=== PATIENT | male | born 1955 | race Caucasian/White ===

== ENCOUNTER 2016-11-06 22:44 | Emergency (ER) | payer MEDICARE, BC ==
[2016-11-06 22:53] VITALS: BP 155/85
[2016-11-06] MEDS ORDERED: Amoxicillin/Clavulanate K 875-125 MG Tab PO ONE ×2 (23:00→23:09)
[2016-11-06] MEDS ORDERED: cefTRIAXone 1 GM, Lidocaine 1% 2.1 ML IM ONE ×2 (23:00)
[2016-11-06] MEDS ORDERED: diphenhydrAMINE 50 MG Cap PO ONE (23:03)
[2016-11-06] MEDS ORDERED: Amoxicillin/Clavulanate K 875-125 MG Tab ONE (23:09)
--- NOTE | 2016-11-06 23:09 | EDM.PDOC ---
ED HPI GENERAL MEDICAL PROBLEM - General Chief Complaint: Eye Problems Stated Complaint: LEFT EYE SWELLING Time Seen by Provider: 11/06/16 22:56 Source of Information: Reports: Patient History Limitations: Reports: No Limitations - History of Present Illness INITIAL COMMENTS - FREE TEXT/NARRATIVE: This 61 yo male patient reports to the ED with swelling of his left eye. The patient reports he is in [place] for a fishing trip. The patient reports he was fishing all day, got back to where he was staying, made supper, ate and noticed some swelling of his eye. The patient applied a cool compress to the area, but it continued to swell. The patient reports he is able to see out of the eye. The patient does not recall anything hitting him in the eye or any insect bite to the area. The patient reports a similar episode in the past, but he does not recall what was done for it. 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 Left Eye Pain Score (Numeric/FACES): 5 - Related Data Allergies Allergy/AdvReac Type Severity Reaction Status Date / Time codeine Allergy Stomach Verified 11/06/16 22:49 Upset Past Medical History Cardiovascular History: Reports: High Cholesterol, Hypertension Respiratory History: Reports: COPD Gastrointestinal History: Reports: GERD Endocrine/Metabolic History: Reports: Diabetes, Type II Social & Family History - Tobacco Use Smoking Status *Q: Unknown Ever Smoked - Caffeine Use Caffeine Use: Reports: Coffee, Soda - Recreational Drug Use Recreational Drug Use: No ED ROS GENERAL - Review of Systems Review Of Systems: ROS reveals no pertinent complaints other than HPI. ED EXAM GENERAL W FULL EYE - Physical Exam Exam: See Below Exam Limited By: No Limitations General Appearance: Alert, WD/WN, Moderate Distress Eye Exam: Left Eye: Conjunctival Injection Eyelids: Left: Erythema Conjunctiva & Sclera: Left: Injected Cornea Exam: Bilateral: Normal Appearance Extraocular Movements: Bilateral: Intact Pupils: Normal Accommodation Pupillary Size: Bilateral: 4 mm Pupillary Reaction: Bilateral: Brisk Anterior Chamber: Bilateral: Normal Appearance Ears: Normal External Exam, Normal Canal, Hearing Grossly Normal, Normal TMs Nose: Normal Inspection, Normal Mucosa, No Blood Throat/Mouth: Normal Inspection, Normal Lips, Normal Teeth, Normal Gums, Normal Oropharynx, Normal Voice, No Airway Compromise Head: Atraumatic, Normocephalic Neck: Normal Inspection, Supple, Non-Tender, Full Range of Motion Respiratory/Chest: No Respiratory Distress, Lungs Clear, Normal Breath Sounds, No Accessory Muscle Use, Chest Non-Tender Cardiovascular: Normal Peripheral Pulses, Regular Rate, Rhythm, No Edema, No Gallop, No JVD, No Murmur, No Rub GI/Abdominal: Normal Bowel Sounds, Soft, Non-Tender, No Organomegaly, No Distention, No Abnormal Bruit, No Mass (Male) Exam: Deferred Rectal (Males) Exam: Deferred Back Exam: Normal Inspection, Full Range of Motion, NT Extremities: Normal Inspection, Normal Range of Motion, Non-Tender, Normal Capillary Refill, No Pedal Edema Neurological: Alert, Oriented, CN II-XII Intact, Normal Cognition, Normal Gait, Normal Reflexes, No Motor/Sensory Deficits Psychiatric: Normal Affect, Normal Mood Skin Exam: Warm, Dry, Intact, Normal Color, No Rash Lymphatic: No Adenopathy Course - Vital Signs Last Recorded V/S: Last Vital Signs Temp 36.6 C 11/06/16 22:52 Pulse 91 11/06/16 22:52 Resp 20 11/06/16 22:52 BP 155/85 H 11/06/16 22:52 Pulse Ox 97 11/06/16 22:52 - Orders/Labs/Meds Meds: Medications Discontinued Medications Generic Name Dose Route Start Last Admin Trade Name Joseq PRN Reason Stop Dose Admin Amoxicillin/Clavulanate Potassium 1 tab 11/06/16 23:00 Augmentin 875 Mg/125 Mg PO 11/06/16 23:01 ONETIME ONE Ceftriaxone Sodium 1 gm/ 0 gm 11/06/16 23:00 Lidocaine HCl 2.1 ml IM 11/06/16 23:01 ONETIME ONE Diphenhydramine HCl 50 mg 11/06/16 23:03 Benadryl PO 11/06/16 23:04 ONETIME ONE Departure - Departure Time of Disposition: 23:05 Disposition: Home, Self-Care 01 Condition: fair Clinical Impression: Orbital cellulitis on left - Discharge Information Instructions: Orbital Cellulitis Forms: ED Department Discharge Care Plan Goals: The patient was advised of the examination results during the visit. The patient was given an injection of Rocephin (1 gram), an oral dose of Augmentin ( 875/125) and an oral dose of Benadryl (50 mg) while in the ED. The patient was discharged with an oral dose of Augmentin (875/125) to take in the morning and a script for Augmentin (875/125) #20 to take 1 by mouth 2 times per day for 10 days. The patient was encouraged to continue to take Benadryl (25 mg) every 6 hours over the next 2-3 days. If the patient has any additional symptoms or concerns, the patient should follow-up with his primary care facility, with an eye doctor or return to the emergency department.
== END 2016-11-06 23:29 | disposition home or self-care (01) ==
LOC: DL.ED 22:44
DX: H05.012 Cellulitis of left orbit (principal); J44.9 Chronic obstructive pulmonary disease, unspecified; E78.00 Pure hypercholesterolemia, unspecified; I10 Essential (primary) hypertension; K21.9 Gastro-esophageal reflux disease without esophagitis; E11.9 Type 2 diabetes mellitus without complications; Z88.5 Allergy status to narcotic agent
CPT/HCPCS: 96372; 99283; A9270; J0696; Q0163